=== PATIENT | female | born 1995 | race Caucasian/White ===

== ENCOUNTER 2016-09-08 17:49 | Emergency (ER) | payer OTHER ==
--- NOTE | 2016-09-08 18:44 | ED Physician Documentation ---
PD HPI ABD PAIN - Stated complaint Stated Complaint: 17 WKS/ BLEEDING - Chief complaint Chief Complaint: Abd Pain - History obtained from History obtained from: Patient - History of Present Illness Timing - onset: Today (21-year-old G1 at 17 weeks, she thinks her blood type is A+ but isn't quite sure. No complications of this for so far. Had a gush of blood from her vagina earlier which has stopped.) Review of Systems Constitutional: denies: Fever, Chills Eyes: reports: Reviewed and negative Throat: reports: Reviewed and negative Cardiac: reports: Reviewed and negative PD PAST MEDICAL HISTORY - Past Surgical History Past Surgical History: No - Present Medications Home Medications: Ambulatory Orders Medication Instructions Recorded Confirmed Nitrofurantoin Monohyd/M-Cryst 1 tab PO BID 5 Days 09/08/16 [Macrobid 100 mg Capsule] - Social History Does the pt smoke?: No Smoking Status: Never smoker Does the pt drink ETOH?: No Does the pt have substance abuse?: No - Immunizations Immunizations are current?: Yes PD ED PE NORMAL - Vitals Vital signs reviewed: Yes - General General: Alert and oriented X 3, No acute distress - HEENT HEENT: PERRL, EOMI - Neck Neck: Supple, no meningeal sign, No bony TTP - Abdomen Abdomen: Normal bowel sounds, Soft, Non tender - Female Female : Other (Bedside sono: single live IUP, HR 155, +FM, no FF) - Neuro Neuro: Alert and oriented X 3, Normal speech - Psych Psych: Normal mood, Normal affect Results - Vitals Vitals: Vital Signs - 24 hr 09/08/16 09/08/16 09/08/16 17:56 19:04 19:59 Temperature 37 C 36.6 C 36.7 C Heart Rate 73 67 70 Respiratory 18 15 16 Rate Blood Pressure 137/77 H 127/77 119/70 O2 Saturation 98 99 100 09/08/16 20:10 Temperature 36.4 C L Heart Rate 66 Respiratory 15 Rate Blood Pressure 118/68 O2 Saturation 100 Oxygen O2 Source Room air - Labs Labs: Laboratory Tests 09/08/16 09/08/16 09/08/16 17:58 18:54 18:54 WBC 7.5 RBC 3.82 L Hgb 9.0 L Hct 27.5 L MCV 72.0 L MCH 23.5 L MCHC 32.6 RDW 18.2 H Plt Count 250 MPV 8.2 Neut # 5.2 Lymph # 1.9 [place] # 0.3 Eos # 0.1 Baso # 0.0 Absolute Nucleated RBC 0.00 Nucleated RBCs 0.0 Sodium 136 Potassium 3.4 L Chloride 103 Carbon Dioxide 25 Anion Gap 8.0 BUN 8 Creatinine 0.4 Estimated GFR (MDRD) 203 Glucose 87 Calcium 8.9 Total Bilirubin 0.4 AST 24 ALT 19 Alkaline Phosphatase 50 Total Protein 7.8 Albumin 3.7 Globulin 4.1 Albumin/Globulin Ratio 0.9 L Lipase 35 Urine Color YELLOW Urine Clarity HAZY Urine pH 6.0 Ur Specific [place] <=1.005 Urine Protein NEGATIVE Urine Glucose (UA) NEGATIVE Urine Ketones NEGATIVE Urine Occult Blood NEGATIVE Urine Nitrite NEGATIVE Urine Bilirubin NEGATIVE Urine Urobilinogen 0.2 (NORMAL) Ur Leukocyte Esterase MODERATE H Urine RBC 0-5 Urine WBC 11-25 H Ur Squamous Epith Cells MANY Squamous H Urine Bacteria Few Ur Microscopic Review INDICATED Urine Culture Comments NOT INDICATED Blood Type 09/08/16 18:54 WBC RBC Hgb Hct MCV MCH MCHC RDW Plt Count MPV Neut # Lymph # [place] # Eos # Baso # Absolute Nucleated RBC Nucleated RBCs Sodium Potassium Chloride Carbon Dioxide Anion Gap BUN Creatinine Estimated GFR (MDRD) Glucose Calcium Total Bilirubin AST ALT Alkaline Phosphatase Total Protein Albumin Globulin Albumin/Globulin Ratio Lipase Urine Color Urine Clarity Urine pH Ur Specific [place] Urine Protein Urine Glucose (UA) Urine Ketones Urine Occult Blood Urine Nitrite Urine Bilirubin Urine Urobilinogen Ur Leukocyte Esterase Urine RBC Urine WBC Ur Squamous Epith Cells Urine Bacteria Ur Microscopic Review Urine Culture Comments Blood Type A POSITIVE PD MEDICAL DECISION MAKING - ED course ED course: 21-year-old at 17 weeks with resolved vaginal bleeding, may be related to bladder infection which is treated with Macrobid. heart tones and motion on bedside ultrasound are reassuring. Discussed anemia with patient, she is already having this worked up as an outpatient and was aware of this. Blood type is A+. Departure - Departure Disposition: 01 Home, Self Care Clinical Impression: Vaginal bleeding before 22 weeks gestation, Cystitis Qualifiers: Weeks of gestation: 17 weeks Qualified Code(s): Z3A.17 - 17 weeks gestation of Anemia Qualifiers: Anemia type: unspecified type Qualified Code(s): D64.9 - Anemia, unspecified Condition: Good Record reviewed to determine appropriate education?: Yes Instructions: ED UTI Cystitis Female Prescriptions: Nitrofurantoin Monohyd/M-Cryst [Macrobid 100 mg Capsule] 1 tab PO BID 5 Days Comments: Your blood type is A+, followup with your doctor for routine care and continued workup of your anemia. Return if worse.
[2016-09-08 19:08] LABS: BILIRUBIN,URINE NEGATIVE (NEGATIVE)
[2016-09-08 19:09] LABS: UA w/ MICROSCOPIC CHARGE YES
[2016-09-08 19:12] LABS: BASOPHILS % (AUTO) 0.6 %; EOSINOPHILS # (AUTO) 0.1 10^3/uL (0.0-0.7); EOSINOPHILS % (AUTO) 0.8 %; HCT - HEMATOCRIT 27.5 % (37.0-47.0); LYMPHOCYTES # (AUTO) 1.9 10^3/uL (1.5-3.5); LYMPHOCYTES % (AUTO) 25.7 %; MEAN CORPUSCULAR HEMOGLOBIN 23.5 pg (27.0-31.0); MEAN CORPUSCULAR HGB CONC 32.6 g/dL (32.0-36.0); MEAN PLATELET VOLUME 8.2 fL (7.9-10.8); MONOCYTES # (AUTO) 0.3 10^3/uL (0.0-1.0); MONOCYTES % (AUTO) 4.3 %; NEUTROPHILS # (AUTO) 5.2 10^3/uL (1.5-6.6); NEUTROPHILS % (AUTO) 68.6 %; RED BLOOD COUNT 3.82 10^6/uL (4.20-5.40); RED CELL DISTRIBUTION WIDTH 18.2 % (12.0-15.0); UNCORRECTED WHITE BLOOD COUNT 7.5 x10^3/uL; WHITE BLOOD COUNT 7.5 x10^3/uL (4.8-10.8)
[2016-09-08 19:21] LABS: ALBUMIN/GLOBULIN RATIO 0.9 (1.0-2.2); BILIRUBIN,TOTAL 0.4 mg/dL (0.2-1.0); CALCIUM 8.9 mg/dL (8.5-10.3); CREATININE 0.4 mg/dL (0.4-1.0); POTASSIUM 3.4 mmol/L (3.5-5.0); TOTAL PROTEIN 7.8 g/dL (6.7-8.2)
[2016-09-08 19:40] LABS: UR CULTURE IF IND NOT INDICATED
[2016-09-08 20:10] VITALS: BP 118/68
[2016-09-08] MEDS ORDERED: NITROFURANTOIN MACRO 100 MG CAPSULE PO ONE (20:18)
[2016-09-08] MEDS: NITROFURANTOIN MACRO 100 MG CAPSULE PO STA (20:22)
== END 2016-09-08 20:27 | disposition home or self-care (01) ==
LOC: ED 17:49
DX: O20.9 Hemorrhage in early pregnancy, unspecified (principal); O23.12 Infections of bladder in pregnancy, second trimester; N30.91 Cystitis, unspecified with hematuria; O99.012 Anemia complicating pregnancy, second trimester; Z3A.17 17 weeks gestation of pregnancy
CPT/HCPCS: 36415; 80053; 81001; 81003; 83690; 85025; 86900; 86901; 87086; 99283

== ENCOUNTER 2016-09-09 20:45 | Outpatient (CLI) | payer OTHER ==
--- NOTE | 2016-09-09 22:36 | Ultrasound Preliminary Report ---
Exam: US OB 14+ Weeks IMPRESSION: 1. Single live intrauterine with a gestational age of 17 weeks 5 days base and LMP N/A comp osite gestational age of 17 weeks 2 days based on the current exam. 2. Anterior placenta without evidence for previa or abruption. 3. Normal amniotic fluid. 4. The cervix is long and closed. RADIA The call report notification system was initiated by Dr. Rosalba Stanley at 22:31 hrs on 09/09/16. The above findings were discussed with Dr. Nati Leon by Dr. Rosalba Stanley at 22:35 hrs on 7. SITE ID: [id number]
--- NOTE | 2016-09-09 22:39 | Ultrasound Report ---
EXAM: OBSTETRIC ULTRASOUND EXAM DATE: 09/09/2016 09:05 PM. CLINICAL HISTORY: Antepartum hemorrhage. LMP 05/18/2016 COMPARISON: None. TECHNIQUE: Real-time scanning performed with static images. Both color-flow and Doppler technology were utilized . FINDINGS: Fetus: Single live intrauterine gestation. Presentation: Cephalic. Heart Rate: 140 BPM. Placenta: Anterior position. No evidence for previa or abruption. Amniotic Fluid: Normal. BRISA 15.5 cm. Biometry: Bi-parietal diameter (BPD): 3.9 cm = 18 weeks 0 days. Head circumference (HC): 13.8 cm = 17 weeks 1 days. Abdominal circumference (AC): 10.4 cm = 16 weeks 3 days. Femur length (FL): 2.4 cm = 17 weeks 2 days. Dates: Composite gestational age (this exam): 17 weeks 2 days (TUNG 02/15/2017). Gestational age (based on LMP 05/08/2016): 17 weeks 5 days (TUNG 02/12/2017). Estimated weight: 173 gm. Maternal Structures: Cervix: Long and closed measuring 4.9 cm. Free fluid: None. IMPRESSION: 1. Single live intrauterine with a gestational age of 17 weeks 5 days base and LMP N/A comp osite gestational age of 17 weeks 2 days based on the current exam. 2. Anterior placenta without evidence for previa or abruption. 3. Normal amniotic fluid. 4. The cervix is long and closed. RADIA The call report notification system was initiated by Dr. Rosalba Stanley at 22:31 hrs on 09/09/16. The above findings were discussed with Dr. Nati Leon by Dr. Rosalba Stanley at 22:35 hrs on 7. Referring Provider Line: [phone] SITE ID: [id number]
== END 2016-09-09 20:46 | disposition home or self-care (01) ==
LOC: DI 20:45
PROVIDERS: ATTEND Obstetrics & Gynecology
DX: O46.92 Antepartum hemorrhage, unspecified, second trimester (principal)
CPT/HCPCS: 76805

== ENCOUNTER 2016-11-29 20:30 | Emergency (ER) | payer OTHER ==
--- NOTE | 2016-11-29 21:27 | ED Physician Documentation ---
History of Present Illness - Stated complaint Stated Complaint: FEMALE - Chief complaint Chief Complaint: General - History obtained from History obtained from: Patient - History of Present Illness Timing: Other (She is 29 weeks , she noticed a painful lump under the superior part of the left areole a few days ago which was slightly larger and more painful today without breast discharge or skin changes.) Review of Systems Constitutional: denies: Fever, Chills Cardiac: denies: Chest pain / pressure, Palpitations Respiratory: denies: Dyspnea, Cough GI: denies: Abdominal Pain PD PAST MEDICAL HISTORY - Past Medical History Past Medical History: No - Past Surgical History Past Surgical History: No General: Appendectomy HEENT: Tonsil/Adenoidectomy - Present Medications Home Medications: Ambulatory Orders Medication Instructions Recorded Confirmed Fluconazole 100 mg PO DAILY 11/29/16 11/29/16 Magnesium Oxide [Mag Ox] 400 mg PO DAILY 11/29/16 11/29/16 Pyridoxine HCl 50 mg PO DAILY 11/29/16 11/29/16 - Allergies Allergies/Adverse Reactions: Allergies Allergy/AdvReac Type Severity Reaction Status Date / Time No Known Drug Allergies Allergy Verified 11/29/16 20:37 - Social History Does the pt smoke?: No Smoking Status: Never smoker Does the pt drink ETOH?: No Does the pt have substance abuse?: No - Immunizations Immunizations are current?: Yes PD ED PE NORMAL - Vitals Vital signs reviewed: Yes - General General: Alert and oriented X 3, No acute distress - Neck Neck: Supple, no meningeal sign, No bony TTP - Derm Derm: Other (Breast exam done with Renetta SYKES present in chaperoning. There is a acutely tender subcutaneous lump under the superior part of the left areola that is firm and consistent with fibrocystic breast disease. No cellulitis.) - Neuro Neuro: Alert and oriented X 3, Normal speech Results - Vitals Vitals: Vital Signs - 24 hr 11/29/16 20:32 Temperature 36.7 C Heart Rate 83 Respiratory 20 Rate Blood Pressure 119/61 O2 Saturation 99 Oxygen O2 Source Room air Departure - Departure Disposition: 01 Home, Self Care Clinical Impression: Fibrocystic breast changes Qualifiers: Laterality: left Qualified Code(s): N60.12 - Diffuse cystic mastopathy of left breast Condition: Good Record reviewed to determine appropriate education?: Yes Comments: Have a repeat exam with your phlebotomy lab assistant at your next scheduled appointment and she can follow this along and decide if imaging is necessary, but she may decide on watchful waiting until after the baby is born. Tylenol as needed per package instructions for pain
[2016-11-29 21:41] VITALS: BP 109/64
== END 2016-11-29 21:44 | disposition home or self-care (01) ==
LOC: ED 20:30
DX: O26.893 Other specified pregnancy related conditions, third trimester (principal); N60.12 Diffuse cystic mastopathy of left breast; Z3A.29 29 weeks gestation of pregnancy
CPT/HCPCS: 99282; 99283

== ENCOUNTER 2017-01-13 08:00 | Outpatient (CLI) | payer OTHER | END 2017-01-13 08:01 | disposition home or self-care (01) | LOC: LAB.R 08:00 | PROVIDERS: ATTEND Obstetrics & Gynecology | DX: Z36 Encounter for antenatal screening of mother (principal) | CPT/HCPCS: 87081 ==

== ENCOUNTER 2017-01-13 14:22 | Outpatient (CLI) | payer OTHER ==
[2017-01-13 16:31] LABS: BASOPHILS % (AUTO) 0.4 %; EOSINOPHILS % (AUTO) 0.4 %; HCT - HEMATOCRIT 24.2 % (37.0-47.0); HGB - HEMOGLOBIN 7.5 g/dL (12.0-16.0); LYMPHOCYTES # (AUTO) 1.3 10^3/uL (1.5-3.5); LYMPHOCYTES % (AUTO) 17.6 %; MEAN CORPUSCULAR HEMOGLOBIN 20.4 pg (27.0-31.0); MEAN CORPUSCULAR HGB CONC 31.1 g/dL (32.0-36.0); MEAN CORPUSCULAR VOLUME 65.6 fL (81.0-99.0); MEAN PLATELET VOLUME 8.3 fL (7.9-10.8); MONOCYTES # (AUTO) 0.3 10^3/uL (0.0-1.0); MONOCYTES % (AUTO) 3.9 %; NEUTROPHILS # (AUTO) 5.9 10^3/uL (1.5-6.6); NEUTROPHILS % (AUTO) 77.7 %; NUCLEATED RED BLOOD CELLS AUTO 0.1 /100WBC; RED BLOOD COUNT 3.69 10^6/uL (4.20-5.40); RED CELL DISTRIBUTION WIDTH 17.6 % (12.0-15.0); UNCORRECTED WHITE BLOOD COUNT 7.6 x10^3/uL; WHITE BLOOD COUNT 7.6 x10^3/uL (4.8-10.8)
[2017-01-13 16:43] LABS: PLATELET ESTIMATE, MANUAL NORMAL (130-450,000) (NORMAL); PLATELET MORPHOLOGY 1+ LARGE PLATELETS (NORMAL)
[2017-01-18 08:02] LABS: TEST RESULT REPORT (())
== END 2017-01-13 14:23 | disposition home or self-care (01) ==
LOC: LAB 14:22
PROVIDERS: ATTEND Obstetrics & Gynecology
DX: O99.013 Anemia complicating pregnancy, third trimester (principal); Z36 Encounter for antenatal screening of mother
CPT/HCPCS: 36415; 81599; 83021; 85025; 87081

== ENCOUNTER 2017-01-18 21:15 | Outpatient (CLI) | payer OTHER ==
[2017-01-18 19:27] LABS: IRON 13 ug/dL (28-170); TOTAL IRON BINDING CAPACITY 728 ug/dL (250-450); TRANSFERRIN 520 mg/dL (192-382)
== END 2017-01-18 21:16 | disposition home or self-care (01) ==
LOC: LAB.N 21:15
PROVIDERS: ATTEND Obstetrics & Gynecology
DX: O99.013 Anemia complicating pregnancy, third trimester (principal)
CPT/HCPCS: 36415; 82728; 83540; 84466

== ENCOUNTER 2017-01-23 10:02 | Outpatient (CLI) | payer OTHER ==
[2017-01-23] MEDS ORDERED: TERBUTALINE 1 MG/ML VIAL SUBQ ONE ×2 (12:33→13:00)
[2017-01-23 12:52] LABS: BASOPHILS # (AUTO) 0.1 10^3/uL (0.0-0.1); BASOPHILS % (AUTO) 0.7 %; EOSINOPHILS % (AUTO) 0.2 %; HCT - HEMATOCRIT 23.5 % (37.0-47.0); HGB - HEMOGLOBIN 7.5 g/dL (12.0-16.0); LYMPHOCYTES # (AUTO) 1.5 10^3/uL (1.5-3.5); LYMPHOCYTES % (AUTO) 18.5 %; MEAN CORPUSCULAR HEMOGLOBIN 20.2 pg (27.0-31.0); MEAN CORPUSCULAR HGB CONC 31.7 g/dL (32.0-36.0); MEAN CORPUSCULAR VOLUME 63.5 fL (81.0-99.0); MEAN PLATELET VOLUME 7.6 fL (7.9-10.8); MONOCYTES # (AUTO) 0.4 10^3/uL (0.0-1.0); MONOCYTES % (AUTO) 4.4 %; NEUTROPHILS # (AUTO) 6.3 10^3/uL (1.5-6.6); NEUTROPHILS % (AUTO) 76.2 %; NUCLEATED RED BLOOD CELLS AUTO 0.1 /100WBC; RED BLOOD COUNT 3.71 10^6/uL (4.20-5.40); RED CELL DISTRIBUTION WIDTH 17.8 % (12.0-15.0); UNCORRECTED WHITE BLOOD COUNT 8.3 x10^3/uL; WHITE BLOOD COUNT 8.3 x10^3/uL (4.8-10.8)
[2017-01-23] MEDS ORDERED: SODIUM CHLORIDE FLUSH 0.9% 10 ML SYRINGE IVP ONE (13:13)
[2017-01-23 13:14] LABS: PLATELET MORPHOLOGY NORMAL APPEARANCE (NORMAL)
[2017-01-23 13:15] LABS: PLATELET ESTIMATE, MANUAL NORMAL (130-450,000) (NORMAL)
[2017-01-23 13:16] LABS: WBC MORPHOLOGY (MULTIPLE) NORMAL APPEARANCE (NORMAL)
[2017-01-23 13:52] VITALS: BP 121/75
[2017-01-23] MEDS ORDERED: FERRIC GLUCONATE 125 MG in SODIUM CHLORIDE 0.9% 100ML 100 ML IV ONE (14:30)
[2017-01-23] MEDS ORDERED: LACTATED RINGERS 1,000 ML IV ONE ×2 (15:03→16:00)
== END 2017-01-23 17:34 | disposition home or self-care (01) ==
LOC: WFO 10:02 → FBP 10:03 → WFO 17:34
PROVIDERS: ATTEND Obstetrics & Gynecology
DX: O99.89 Other specified diseases and conditions complicating pregnancy, childbirth and the puerperium (principal); R10.2 Pelvic and perineal pain; Z3A.36 36 weeks gestation of pregnancy
CPT/HCPCS: 36415; 85025; 96365; 96372; 99214; J2916; J7120

== ENCOUNTER 2017-02-06 00:33 | Outpatient (CLI) | payer OTHER ==
[2017-02-06 00:51] VITALS: BP 123/64
== END 2017-02-06 01:40 | disposition home or self-care (01) ==
LOC: WFO 00:33 → FBP 00:34 → WFO 01:40
PROVIDERS: ATTEND Obstetrics & Gynecology
DX: O99.89 Other specified diseases and conditions complicating pregnancy, childbirth and the puerperium (principal); Z3A.38 38 weeks gestation of pregnancy; O99.013 Anemia complicating pregnancy, third trimester
CPT/HCPCS: 99213

== ENCOUNTER 2017-02-15 02:58 | Inpatient (IN) | payer OTHER ==
[2017-02-15] MEDS ORDERED: SODIUM CHLORIDE FLUSH 0.9% 10 ML SYRINGE IVP ONE ×3 (04:04→06:30)
[2017-02-15] MEDS ORDERED: fentaNYL 100 MCG/2 ML VIAL ONE (04:24)
[2017-02-15] MEDS ORDERED: ONDANSETRON 4 MG/2 ML VIAL ONE (04:51)
[2017-02-15] MEDS ORDERED: ONDANSETRON 4 MG/2 ML VIAL IVP SCH (05:00)
[2017-02-15] MEDS ORDERED: fentaNYL 100 MCG/2 ML VIAL IVP SCH (05:00)
[2017-02-15] MEDS ORDERED: fentaNYL 100 MCG/2 ML VIAL IVP STA (06:17)
[2017-02-15 06:55] LABS: BASOPHILS # (AUTO) 0.1 10^3/uL (0.0-0.1); EOSINOPHILS # (AUTO) 0.1 10^3/uL (0.0-0.7); EOSINOPHILS % (AUTO) 0.8 %; HCT - HEMATOCRIT 27.8 % (37.0-47.0); HGB - HEMOGLOBIN 8.6 g/dL (12.0-16.0); LYMPHOCYTES # (AUTO) 1.7 10^3/uL (1.5-3.5); LYMPHOCYTES % (AUTO) 26.8 %; MEAN CORPUSCULAR HEMOGLOBIN 21.2 pg (27.0-31.0); MEAN CORPUSCULAR HGB CONC 30.9 g/dL (32.0-36.0); MEAN CORPUSCULAR VOLUME 68.6 fL (81.0-99.0); MEAN PLATELET VOLUME 8.2 fL (7.9-10.8); MONOCYTES # (AUTO) 0.4 10^3/uL (0.0-1.0); NEUTROPHILS # (AUTO) 4.2 10^3/uL (1.5-6.6); NEUTROPHILS % (AUTO) 65.4 %; RED BLOOD COUNT 4.06 10^6/uL (4.20-5.40); RED CELL DISTRIBUTION WIDTH 22.8 % (12.0-15.0); UNCORRECTED WHITE BLOOD COUNT 6.5 x10^3/uL; WHITE BLOOD COUNT 6.5 x10^3/uL (4.8-10.8)
[2017-02-15] MEDS ORDERED: SODIUM CHLORIDE FLUSH 0.9% 10 ML SYRINGE IVP PRN (07:20)
[2017-02-15] MEDS ORDERED: OXYTOCIN/SODIUM CHLORIDE 250 ML IV ONE ×2 (07:20→19:32)
[2017-02-15] MEDS ORDERED: fentaNYL 100 MCG/2 ML VIAL IVP PRN (07:20)
[2017-02-15 07:45] LABS: PLATELET ESTIMATE, MANUAL NORMAL (130-450,000) (NORMAL); PLATELET MORPHOLOGY 1+ LARGE PLATELETS (NORMAL)
[2017-02-15 07:47] LABS: WBC MORPHOLOGY (MULTIPLE) NORMAL APPEARANCE (NORMAL)
[2017-02-15] MEDS: LACTATED RINGERS 1,000 ML IV SCH ×2 (08:20→15:27)
[2017-02-15] MEDS ORDERED: miSOPROStol 200 MCG TABLET PO ONE (10:59)
[2017-02-15] MEDS: ONDANSETRON 4 MG/2 ML VIAL IVP PRN ×2 (11:37→18:31)
[2017-02-15] MEDS: OXYTOCIN/SODIUM CHLORIDE 250 ML IV SCH ×2 (12:41→19:24)
[2017-02-15] MEDS: ACETAMINOPHEN 325 MG TABLET PO SCH ×3 (12:41→23:54)
--- NOTE | 2017-02-15 13:02 | PROVIDER PROGRESS NOTE ---
Labor Progress Note - Uterine Monitoring Uterine Monitoring Mode: positive: External toco Contraction Frequency (min/apart): Every 3 minutes Contraction Intensity: positive: Moderate Uterine Resting Tone: positive: Soft (Nontender) - Monitoring Monitor Mode: positive: External ultrasound Heart Rate Baseline: 130 Heart Rate Variability: positive: Moderate (6-25 bmp) Accelerations: positive: Present, 15x15 Decelerations: positive: None Strip Review: positive: Category I - Vaginal Exam Dilation (in cm): 5 Effacement (%): 100% Station: 0 Cervical Position: Midposition - Labor Progress Note Labor Progress Note/Additional Text: Patient is entering the active phase. heart tones remain reassuringAnd patient has good energy reserve. She does not want an epidural at this time and we offered fentanyl 75 mcg for a one-time dose. She understands that once the dilation is beyond 7 cm will not be able to offer narcotic pain relief. Patient's close friend should return soon and her mother is expected to flying in at 9 PM tonight.
[2017-02-15] MEDS ORDERED: fentaNYL 100 MCG/2 ML VIAL IVP ONE (13:30)
--- NOTE | 2017-02-15 13:30 | HISTORY & PHYSICAL EXAMINATION ---
DATE OF ADMISSION: 02/15/2017 DIAGNOSES 1. Term , in labor. 2. Iron deficiency anemia complicating . HISTORY: The patient is a 21-year-old primigravida at 40 weeks' gestation based on LMP and early ultrasound. 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 She had recently been evaluated by myself on the in the prodrome of labor and was sent home with morphine and therapeutic rest. At that time her dilation was only 1 cm and she was not engaged. She has significant anemia and recent hemoglobin was 7.0. She has had 2 iron transfusion therapies. Her electrophoresis is negative for hemoglobinopathy. Additionally, she had a recent bout of bacterial vaginosis that was treated. LABORATORY: GBS status negative. PAST MEDICAL HISTORY: The patient has had anemia in the past. PAST SURGICAL HISTORY: Appendectomy in 2003, tonsillectomy and adenoidectomy in 2001. ALLERGIES: NO KNOWN DRUG ALLERGIES. MEDICATIONS 1. vitamins with iron. 2. Supplemental iron. 3. IV iron therapy. FAMILY HISTORY: No congenital anomalies, aneuploid, or inheritable diseases. Breast cancer, maternal grandmother. Diabetes, maternal grandmother. SOCIAL HISTORY: Active duty [employer]. No drug, tobacco or alcohol use reported. REVIEW OF SYSTEMS CONSTITUTIONAL: Negative. HEENT: Negative. LUNGS: Negative. CARDIAC: Negative. BREASTS: Negative. ABDOMINAL/GASTROINTESTINAL: Negative. GENITOURINARY: Negative. MUSCULOSKELETAL: Negative. SKIN: Negative. NEUROLOGIC: Negative. PSYCH: Negative. PHYSICAL EXAMINATION GENERAL: The patient standing comfortably by bed, IV in place. Alert, oriented, cooperative. HEENT: Dentition in good repair. Moist mucous membranes. Supple neck. No thyromegaly. EOMI. No icterus noted in sclerae. LUNGS: Clear to auscultation. CARDIAC: Regular, no murmur, no gallop. BREASTS: Full, nontender. No mass. ABDOMEN: No organomegaly. Soft, nontender. UTERUS: Appropriate size, mild to moderate contractions every 4 minutes. GENITOURINARY: No blood or fluid. Cervix posterior, soft, 80-90% effaced, 3 cm. External heart tracing 130s, category 1. No decels, variability moderate. Contractions every 4 minutes. EXTREMITIES: Nonedematous. NEUROLOGIC: Grossly intact. Patellar reflexes 2+ and equal. Located chain here trying to. LABORATORY DATA: Hemoglobin 8.6, microcytic hypochromic anemia. White count 6.5 , platelets 243, morphology changes noted from anemia. Blood type A positive, antibody screen negative. ASSESSMENT: The patient has made cervical change since our last exam on the and now has regular contractions. heart tracing is category 1 and there are no concerns about reserve at the current time. Discussed epidural and the patient would like to avoid interventions. Additionally, given the strength of palpated labor contractions, Pitocin augmentation may be required, which she consents to. PLAN 1. Admit. 2. Pitocin augmentation. 3. Expected management, effects of maternal anemia anticipated. JOB #: [id number] EXT JOB #:[id number] MICHELET
[2017-02-15] MEDS ORDERED: fent/BUPIV 2 MCG/0.125% 250 ML EP ONE ×2 (15:25→15:29)
--- NOTE | 2017-02-15 15:56 | PROVIDER PROGRESS NOTE ---
Subjective - Prog Note Date Prog Note Date: 02/15/17 - Subjective Pt reports feeling: Worse (Patient now reports chest pain) Subjective: Edgar is in the active phase of labor and reports chest tightness or pressure in the mid sternum. She reports no rate disturbance or palpitations.She is known to be severely anemic with a hemoglobin of 8.2.She reports no headache, visual disturbance or abdominal pain other than uterine contractions. Labor pain is intense and until now she is resisted epidural anesthetic. She has no history of cardio vascular disease or PIH. Objective - Vital Signs/Intake & Output Intake & Output: Intake & Output 02/12/17 02/13/17 02/14/17 02/15/17 23:59 23:59 23:59 23:59 Intake Total 1000 Balance 1000 - Lab Results Fish Bones: 02/15/17 04:15 Other Labs: Lab Results x24hrs 02/15/17 02/15/17 02/15/17 Range/Units 04:15 04:15 04:15 WBC 6.5 (4.8-10.8) x10^3/uL RBC 4.06 L (4.20-5.40) 10^6/uL Hgb 8.6 L (12.0-16.0) g/dL Hct 27.8 L (37.0-47.0) % MCV 68.6 L (81.0-99.0) fL MCH 21.2 L (27.0-31.0) pg MCHC 30.9 L (32.0-36.0) g/dL RDW 22.8 H (12.0-15.0) % Plt Count 243 (130-450) 10^3/uL MPV 8.2 (7.9-10.8) fL Neut # 4.2 (1.5-6.6) 10^3/uL Lymph # 1.7 (1.5-3.5) 10^3/uL [place] # 0.4 (0.0-1.0) 10^3/uL Eos # 0.1 (0.0-0.7) 10^3/uL Baso # 0.1 (0.0-0.1) 10^3/uL Absolute Nucleated RBC 0.00 x10^3/uL Nucleated RBC % 0.0 /100WBC Manual Slide Review Indicated WBC Morphology NORMAL APPEARANCE (NORMAL) Platelet Estimate NORMAL (130-450,000) (NORMAL) Platelet Morphology 1+ LARGE PLATELETS (NORMAL) RBC Morph Micro Appear 2+ MICROCYTOSIS (NORMAL) Blood Type Cancelled A POSITIVE Antibody Screen Cancelled NEGATIVE Crossmatch IS Only See Detail Exam - Exam Vital Signs: Vital Signs (72 hours) 02/15/17 02/15/17 02/15/17 03:16 03:37 05:52 Temperature 98.4 F 98.4 F Heart Rate [ 64 60 Radial] Respiratory 24 20 Rate Blood Pressure 142/92 H 144/70 H 115/63 [Right Brachial artery] O2 Saturation 99 98 General: Alert, Oriented x3, Moderate distress (With labor pain) HEENT: EOMI, Mucous membr. moist/pink, Other (Supple neck) Lungs: Clear to auscultation Cardiovascular: Regular rate, Normal S1, Normal S2, Other (Systolic Flow murmur grade 2/6 without diastolic component: EKG obtained that has a regular rate of 57 in sinus rhythm.There are some T-wave changes suggestive of anterior Ischemia. Immediate review with hospitalist service findings no major concerns..) Abdomen: Other (Uterine contractions moderate every 2-1/2 minutes, normal resting tone) Extremities: No edema Skin: No rashes (Extremities warm hands and feet) Neurological: Normal speech, Sensation intact Psych/Mental Status: Other (Patient anxious due to pain) Assess/Plan - Patient Problems Active Problems List: Current Active Problems 40 weeks gestation of (Acute) Iron deficiency anemia during (Acute) Active Problems Comments: Patient currently reports chest pain.By clinical exam there is no signs of failure. EKG Does not seem consistent with acute infarct. Relative myocardial ischemia is possible due to her severe anemia, the hyperdynamic state of , and the additional vascular changes associated with pain & anxiety. Patient was resistant to epidural for the last several hours but now consents. Epidural should lessen her pain and cardiovascular load. 2 units of packed red blood cells are in reserve. I do not believe it is necessary to transfuse immediately. If patient has marked blood loss transfusion may become necessary. Labor is progressing normally and last exam was close to 9 cm but she has no urge to push. We will place epidural and let her situation stabilized. ADDENDUM: Immediately after epidural, Her pain is decreased and so has her cardiac symptoms - Additional Planning Condition/Complexity: Stable My Orders: My Active Orders 02/15/17 Hospitalist Consult [CONS] Routine 02/15/17 04:09 IV Saline Lock [Saline Lock IV] [RC] ONCE 02/15/17 04:15 RBC, LEUKOREDUCED Urgent 02/15/17 09:00 Oxytocin/Sodium Chloride [Pitocin/Sodium Chloride] 250 ml IV TITR 02/15/17 11:26 Ondansetron Inj [Zofran Inj] 4 mg IVP Q2H PRN Consult/Specialty: Other (Hospitalist service) Plan Discussed with:: Patient Time Spent: 31-60 minutes
[2017-02-15] MEDS ORDERED: diphenhydrAMINE INJ 50 MG/ML VIAL IVP PRN (15:57)
[2017-02-15] MEDS ORDERED: fent/BUPIV 2 MCG/0.125% 250 ML EP PRN (15:57)
[2017-02-15] MEDS ORDERED: NALOXONE 0.4 MG/ML VIAL IVP PRN (15:57)
[2017-02-15] MEDS ORDERED: ONDANSETRON 4 MG/2 ML VIAL IVP PRN (15:57)
[2017-02-15] MEDS ORDERED: METOCLOPRAMIDE 10 MG/2 ML VIAL IVP PRN (15:57)
[2017-02-15] MEDS ORDERED: LACTATED RINGERS 500 ML IV ONE (15:57)
[2017-02-15] MEDS ORDERED: ePHEDrine 50 MG/ML VIAL IVP PRN (15:57)
[2017-02-15] MEDS ORDERED: NALBUPHINE 20 MG/ML AMP IVP PRN (15:57)
[2017-02-15 16:58] LABS: ALBUMIN/GLOBULIN RATIO 0.8 (1.0-2.2); BILIRUBIN,TOTAL 0.7 mg/dL (0.2-1.0); CALCIUM 8.6 mg/dL (8.5-10.3); CREATININE 0.5 mg/dL (0.4-1.0); POTASSIUM 3.6 mmol/L (3.5-5.0); TOTAL PROTEIN 6.4 g/dL (6.7-8.2)
--- NOTE | 2017-02-15 16:58 | PROVIDER PROGRESS NOTE ---
Labor Progress Note - Uterine Monitoring Uterine Monitoring Mode: positive: External toco Contraction Frequency (min/apart): Every 3.5 minutes Contraction Intensity: positive: Moderate Uterine Resting Tone: positive: Soft - Monitoring Monitor Mode: positive: External ultrasound Heart Rate Variability: positive: Moderate (6-25 bmp) Accelerations: positive: Present, 15x15 Decelerations: positive: Variable Strip Review: positive: Category II - Vaginal Exam Dilation (in cm): 10 Effacement (%): 100% Station: 2 Cervical Position: Anterior - Labor Progress Note Labor Progress Note/Additional Text: After epidural patient is progressing well. Additionally her chest pain and shortness of breath have disappeared with adequate pain or relief. I believe her symptoms were not due to a cardiac event but rather secondary to anxiety compounded by relative anemia. Cardiac labs and Hospitalist consult pending.
[2017-02-15 17:02] LABS: TROPONIN I < 0.04 ng/mL (<0.49)
[2017-02-15 17:04] LABS: CREATINE KINASE MB 0.9 ng/mL (0.6-6.3)
[2017-02-15 17:19] LABS: PLATELET ESTIMATE, MANUAL NORMAL (130-450,000) (NORMAL)
[2017-02-15 17:22] LABS: BASOPHILS % (AUTO) 0.5 %; EOSINOPHILS % (AUTO) 0.1 %; HGB - HEMOGLOBIN 8.4 g/dL (12.0-16.0); LYMPHOCYTES # (AUTO) 0.9 10^3/uL (1.5-3.5); LYMPHOCYTES % (AUTO) 9.4 %; MEAN CORPUSCULAR HEMOGLOBIN 21.3 pg (27.0-31.0); MEAN CORPUSCULAR HGB CONC 31.2 g/dL (32.0-36.0); MEAN CORPUSCULAR VOLUME 68.1 fL (81.0-99.0); MEAN PLATELET VOLUME 7.7 fL (7.9-10.8); MONOCYTES # (AUTO) 0.3 10^3/uL (0.0-1.0); MONOCYTES % (AUTO) 3.1 %; NEUTROPHILS # (AUTO) 8.3 10^3/uL (1.5-6.6); NEUTROPHILS % (AUTO) 86.9 %; RED BLOOD COUNT 3.96 10^6/uL (4.20-5.40); RED CELL DISTRIBUTION WIDTH 22.6 % (12.0-15.0); UNCORRECTED WHITE BLOOD COUNT 9.6 x10^3/uL; WHITE BLOOD COUNT 9.6 x10^3/uL (4.8-10.8)
[2017-02-15] MEDS ORDERED: MINERAL OIL LIGHT 10 ML MC ONE (19:01)
[2017-02-15] MEDS ORDERED: HYDROcod/ACETAM 5/325 MG TABLET PO PRN (19:32)
--- NOTE | 2017-02-15 19:47 | DELIVERY NOTE ---
Delivery Note - Labor Labor: positive: Spontaneous - Delivery Method Delivery Method: positive: Vacuum assist - Presentation Presentation: positive: Vertex, LEANDRO - right occiput anterior - Nuchal Cord Nuchal Cord: positive: Present (Nuchal cord was loose and not a factor for the delivery) - Anesthetic Anesthetic Type: Volume: positive: Other (10 cc) - Amniotic Fluid Description Amniotic Fluid Description: positive: Clear - Vacuum Use Indication for Vacuum Use: positive: Suspicion of immediate or potential compromise ( bradycardia to the 80s) Type of Vacuum Cup: positive: Cup: Rigid Vacuum Extraction: positive: Successful Number of pop-offs: 0 - Episiotomy Type Episiotomy Type: positive: None - Laceration Laceration: positive: 2nd degree (Shallow: Midline) - Suture Suture Type: positive: Vicryl Suture Size: positive: 2-0, 3-0 - Delivery Outcome Delivery Outcome: positive: Livebirth - : positive: Placed in direct skin contact with mother, Bulb syringe, Stimulated, Warmed, [place] used [place] sex: positive: Female - Cord Cord: positive: 2 vessels - Placenta Placenta: positive: Spontaneous (Placenta grade 3 without evidence of infection or abruption) - Estimated Blood Loss Estimated Blood Loss (in cc): 250 - Post Delivery Events Post Delivery Events: positive: No post delivery events - Delivery Comments (Free Text/Narrative) Delivery Comments (Free Text/Narrative): Living female was born at 1806 scoring Apgars of 8 and 9.Due to bradycardia Dr. Sherwood was present. Weight pending. To minimize bleeding Cytotec 600 mcg were given per rectum. Sponge count was off by 1. The vagina was searched thoroughly and no foreign objects were Found.
[2017-02-15] MEDS ORDERED: LACTATED RINGERS 1,000 ML IV SCH (20:00)
[2017-02-15] MEDS ORDERED: miSOPROStol 200 MCG TABLET PR SCH (21:00)
[2017-02-15] MEDS: IBUPROFEN 600 MG TABLET PO SCH ×2 (21:58→23:53)
[2017-02-16] MEDS: IBUPROFEN 600 MG TABLET PO SCH ×4 (05:43→23:49)
[2017-02-16] MEDS: ACETAMINOPHEN 325 MG TABLET PO SCH ×4 (05:43→23:49)
[2017-02-16 06:13] LABS: BASOPHILS % (AUTO) 0.4 %; EOSINOPHILS % (AUTO) 0.3 %; HCT - HEMATOCRIT 24.9 % (37.0-47.0); HGB - HEMOGLOBIN 7.8 g/dL (12.0-16.0); LYMPHOCYTES # (AUTO) 1.8 10^3/uL (1.5-3.5); LYMPHOCYTES % (AUTO) 18.7 %; MEAN CORPUSCULAR HEMOGLOBIN 21.4 pg (27.0-31.0); MEAN CORPUSCULAR HGB CONC 31.2 g/dL (32.0-36.0); MEAN CORPUSCULAR VOLUME 68.5 fL (81.0-99.0); MEAN PLATELET VOLUME 7.4 fL (7.9-10.8); MONOCYTES # (AUTO) 0.6 10^3/uL (0.0-1.0); NEUTROPHILS # (AUTO) 7.1 10^3/uL (1.5-6.6); NEUTROPHILS % (AUTO) 74.6 %; RED BLOOD COUNT 3.63 10^6/uL (4.20-5.40); UNCORRECTED WHITE BLOOD COUNT 9.5 x10^3/uL; WHITE BLOOD COUNT 9.5 x10^3/uL (4.8-10.8)
[2017-02-16 06:36] LABS: PLATELET ESTIMATE, MANUAL NORMAL (130-450,000) (NORMAL); PLATELET MORPHOLOGY NORMAL APPEARANCE (NORMAL)
[2017-02-16] MEDS: SODIUM CHLORIDE FLUSH 0.9% 10 ML SYRINGE IVP SCH ×4 (06:53→14:16)
--- NOTE | 2017-02-16 08:49 | PROVIDER PROGRESS NOTE ---
Subjective - General Admit Date: 02/15/17 Procedure Date: 02/15/17 Post Op Days: 1 Procedure Performed: Vacuum(Outlet) assisted vaginal delivery; repair of minor laceration - Review of Systems Wound/Incisions: positive: Healing well Drain Type: None General: positive: No symptoms HEENT: positive: No symptoms Pulmonary: positive: No symptoms Cardiovascular: positive: No symptoms Gastrointestinal: positive: Flatus Genitourinary: positive: Other (Mild non-foul lochia reported) Musculoskeletal: positive: No symptoms Skin: positive: No symptoms Neurological: Psychiatric: positive: No symptoms, Other (Radha's mother arrived from [place] and the entire family is happy) Objective - Patient Data Vital Signs: Vital Signs x48h Temp Pulse Resp BP Pulse Ox 02/16/17 07:54 98.1 F 62 18 109/47 L 99 02/16/17 01:53 98.6 F 69 18 122/62 98 Weight: Weight 02/14/17 02/15/17 02/16/17 23:59 23:59 23:59 Weight (kg) 87.997 kg Intake & Output: Intake and Output Totals x24h 02/14/17 02/15/17 02/16/17 23:59 23:59 23:59 Intake Total 2250.0 Balance 2250.0 - Lab Results Lab Results: 02/16/17 05:52 02/15/17 16:38 Other Lab Results: Lab Results x24hrs 02/16/17 02/15/17 02/15/17 Range/Units 05:52 16:38 16:38 WBC 9.5 (4.8-10.8) x10^3/uL RBC 3.63 L (4.20-5.40) 10^6/uL Hgb 7.8 L (12.0-16.0) g/dL Hct 24.9 L (37.0-47.0) % MCV 68.5 L (81.0-99.0) fL MCH 21.4 L (27.0-31.0) pg MCHC 31.2 L (32.0-36.0) g/dL RDW 22.0 H (12.0-15.0) % Plt Count 198 (130-450) 10^3/uL MPV 7.4 L (7.9-10.8) fL Neut # 7.1 H (1.5-6.6) 10^3/uL Lymph # 1.8 (1.5-3.5) 10^3/uL [place] # 0.6 (0.0-1.0) 10^3/uL Eos # 0.0 (0.0-0.7) 10^3/uL Baso # 0.0 (0.0-0.1) 10^3/uL Absolute Nucleated RBC 0.00 x10^3/uL Nucleated RBC % 0.0 /100WBC Manual Slide Review Indicated Platelet Estimate NORMAL (130-450,000) (NORMAL) Platelet Morphology NORMAL APPEARANCE (NORMAL) RBC Morph Micro Appear 1+ POLYCHROMASIA (NORMAL) Sodium (135-145) mmol/L Potassium (3.5-5.0) mmol/L Chloride (101-111) mmol/L Carbon Dioxide (21-32) mmol/L Anion Gap (6-13) BUN (6-20) mg/dL Creatinine (0.4-1.0) mg/dL Estimated GFR (MDRD) (>89) Glucose (70-100) mg/dL Calcium (8.5-10.3) mg/dL Total Bilirubin (0.2-1.0) mg/dL AST (10-42) IU/L ALT (10-60) IU/L Alkaline Phosphatase (42-121) IU/L Total Creatine Kinase 49 (22-269) IU/L CK-MB (CK-2) 0.9 (0.6-6.3) ng/mL Troponin I < 0.04 (<0.49) ng/mL Total Protein (6.7-8.2) g/dL Albumin (3.2-5.5) g/dL Globulin (2.1-4.2) g/dL Albumin/Globulin Ratio (1.0-2.2) Blood Type Antibody Screen Crossmatch IS Only 02/15/17 02/15/17 02/15/17 Range/Units 16:38 16:38 04:15 WBC 9.6 (4.8-10.8) x10^3/uL RBC 3.96 L (4.20-5.40) 10^6/uL Hgb 8.4 L (12.0-16.0) g/dL Hct 27.0 L (37.0-47.0) % MCV 68.1 L (81.0-99.0) fL MCH 21.3 L (27.0-31.0) pg MCHC 31.2 L (32.0-36.0) g/dL RDW 22.6 H (12.0-15.0) % Plt Count 233 (130-450) 10^3/uL MPV 7.7 L (7.9-10.8) fL Neut # 8.3 H (1.5-6.6) 10^3/uL Lymph # 0.9 L (1.5-3.5) 10^3/uL [place] # 0.3 (0.0-1.0) 10^3/uL Eos # 0.0 (0.0-0.7) 10^3/uL Baso # 0.0 (0.0-0.1) 10^3/uL Absolute Nucleated RBC 0.00 x10^3/uL Nucleated RBC % 0.0 /100WBC Manual Slide Review Platelet Estimate NORMAL (130-450,000) (NORMAL) Platelet Morphology (NORMAL) RBC Morph Micro Appear 1+ HYPOCHROMASIA (NORMAL) Sodium 133 L (135-145) mmol/L Potassium 3.6 (3.5-5.0) mmol/L Chloride 102 (101-111) mmol/L Carbon Dioxide 21 (21-32) mmol/L Anion Gap 10.0 (6-13) BUN 6 (6-20) mg/dL Creatinine 0.5 (0.4-1.0) mg/dL Estimated GFR (MDRD) 157 (>89) Glucose 111 H (70-100) mg/dL Calcium 8.6 (8.5-10.3) mg/dL Total Bilirubin 0.7 (0.2-1.0) mg/dL AST 19 (10-42) IU/L ALT 13 (10-60) IU/L Alkaline Phosphatase 122 H (42-121) IU/L Total Creatine Kinase (22-269) IU/L CK-MB (CK-2) (0.6-6.3) ng/mL Troponin I (<0.49) ng/mL Total Protein 6.4 L (6.7-8.2) g/dL Albumin 2.9 L (3.2-5.5) g/dL Globulin 3.5 (2.1-4.2) g/dL Albumin/Globulin Ratio 0.8 L (1.0-2.2) Blood Type Cancelled Antibody Screen Cancelled Crossmatch IS Only See Detail 02/15/17 Range/Units 04:15 WBC (4.8-10.8) x10^3/uL RBC (4.20-5.40) 10^6/uL Hgb (12.0-16.0) g/dL Hct (37.0-47.0) % MCV (81.0-99.0) fL MCH (27.0-31.0) pg MCHC (32.0-36.0) g/dL RDW (12.0-15.0) % Plt Count (130-450) 10^3/uL MPV (7.9-10.8) fL Neut # (1.5-6.6) 10^3/uL Lymph # (1.5-3.5) 10^3/uL [place] # (0.0-1.0) 10^3/uL Eos # (0.0-0.7) 10^3/uL Baso # (0.0-0.1) 10^3/uL Absolute Nucleated RBC x10^3/uL Nucleated RBC % /100WBC Manual Slide Review Platelet Estimate (NORMAL) Platelet Morphology (NORMAL) RBC Morph Micro Appear (NORMAL) Sodium (135-145) mmol/L Potassium (3.5-5.0) mmol/L Chloride (101-111) mmol/L Carbon Dioxide (21-32) mmol/L Anion Gap (6-13) BUN (6-20) mg/dL Creatinine (0.4-1.0) mg/dL Estimated GFR (MDRD) (>89) Glucose (70-100) mg/dL Calcium (8.5-10.3) mg/dL Total Bilirubin (0.2-1.0) mg/dL AST (10-42) IU/L ALT (10-60) IU/L Alkaline Phosphatase (42-121) IU/L Total Creatine Kinase (22-269) IU/L CK-MB (CK-2) (0.6-6.3) ng/mL Troponin I (<0.49) ng/mL Total Protein (6.7-8.2) g/dL Albumin (3.2-5.5) g/dL Globulin (2.1-4.2) g/dL Albumin/Globulin Ratio (1.0-2.2) Blood Type A POSITIVE Antibody Screen NEGATIVE Crossmatch IS Only - Current Medications Current Medications: Current Medications Generic Name Dose Route Start Last Admin Trade Name Sriniq PRN Reason Stop Dose Admin Acetaminophen 650 mg 02/15/17 08:00 02/16/17 05:43 Tylenol PO 650 mg Q6H AMY Administration Ibuprofen 600 mg 02/15/17 20:00 02/16/17 05:43 Motrin PO 600 mg Q6H AMY Administration Sodium Chloride 10 ml 02/15/17 14:00 02/16/17 07:25 Normal Saline Flush 0.9% IVP Not Given Q8HR AMY Exam - Exam Vital Signs: Vital Signs (72 hours) 02/15/17 02/15/17 02/15/17 03:16 03:37 05:52 Temperature 98.4 F 98.4 F Heart Rate [ 64 60 Radial] Respiratory 24 20 Rate Blood Pressure 142/92 H 144/70 H 115/63 [Right Brachial artery] O2 Saturation 99 98 02/15/17 02/15/17 02/15/17 19:47 19:55 20:25 Temperature 97.8 F Heart Rate [ 83 83 75 Radial] Respiratory 16 18 18 Rate Blood Pressure 116/77 117/52 L 131/72 H [Right Brachial artery] O2 Saturation 02/15/17 02/15/17 02/15/17 20:31 20:32 20:45 Temperature Heart Rate [ 66 76 73 Radial] Respiratory 16 Rate Blood Pressure 144/71 H 128/78 126/77 [Right Brachial artery] O2 Saturation 02/15/17 02/16/17 02/16/17 21:00 01:53 07:54 Temperature 98.6 F 98.1 F Heart Rate [ 72 69 62 Radial] Respiratory 18 18 18 Rate Blood Pressure 141/64 H 122/62 109/47 L [Right Brachial artery] O2 Saturation 98 99 General: Alert, Oriented x3, Cooperative, No acute distress HEENT: EOMI, Mucous membr. moist/pink Abdomen: Normal bowel sounds, No tenderness, Other (Uterus 17 week size nontender and firm) Extremities: No edema Skin: No rashes Neurological: Normal speech, Sensation intact Psych/Mental Status: Mental status NL Assessment/Plan - Assessment/Plan Assessment: Patient recovering well from vaginal delivery with minimal blood loss. Hemoglobin stable and patient is compensated for her anemia. Plan: Patient will remain for at least 1-2 more days for supportive care and new mother education
--- NOTE | 2017-02-16 10:02 | PROCEDURE REPORT ---
DATE OF PROCEDURE: 02/15/2017 DELIVERY NOTE PRE-DELIVERY DIAGNOSES 1. Spontaneous labor at 40 weeks' gestation. 2. Severe anemia, iron deficiency. 3. Intermittent bout of chest pain. 4. bradycardia. POSTOPERATIVE DIAGNOSES 1. Spontaneous labor at 40 weeks' gestation. 2. Severe anemia, iron deficiency. 3. Intermittent bout of chest pain. 4. bradycardia. 5. Successful vacuum delivery. 6. Placenta was grade 3. PROCEDURE: Outlet vacuum without rotation over an intact perineum to yield a living female ; repair of minor midline laceration, second degree. YAM CURER: Pavel Patel MD, FACOG, FICS. ANESTHESIA: Epidural; 10 mL of lidocaine 1% local (Dr. Patel). NEWS WRITER: Madhu Vieira CRNA. NEWSPAPER DISTRIBUTOR SUPERVISOR: Christian Carter MD (Pediatrics). COMPLICATIONS: None. ESTIMATED BLOOD LOSS: 250. DRAINS: None. Patient straight catheterized prior to delivery. FINDINGS: At 1805 hours, a living female was born weighing 6 pounds 11 ounces and scoring Apgars 8/9. There were no obvious congenital anomalies or trauma. Cord blood sample was taken. Reference Dr. Carter's notes. There was a 3-vessel cord draped loosely x1. Cord was not a factor in delivery. Placenta was delivered intact without evidence of infection, abruption, or meconium. Placenta was grade 3. Examination of the female genital tract found a shallow second-degree laceration without extension to the anal sphincter or rectum itself. TECHNIQUE: Patient experienced chest pain during the active phase of labor. The pain resulted from inadequate pain control, She declined epidural in pursuit of unmedicated but did allow IVP Fentanyl. Hemoglobin was checked and found to be stable. EKG showed some nonspecific T-wave changes that were reviewed by hospitalist and felt not to be problematic. After epidural with complete pain relief, chest pain resolved. She was allowed to labor down, and at +3 station, She was prepared for pushing. The patient pushed with good effort, coached by nursing and friend. She brought the head to the perineum. At that point, there was a prolonged bout of bradycardia into the 80s, which prompted vacuum assistance. Vacuum was uneventfully performed. Shoulders were delivered without difficulty. was placed on the maternal abdomen. After cord ceased pulsation, it was clamped and transected. Vagina was inspected, and there was 3 cm in length, second-degree laceration that was fairly shallow. This was uneventfully repaired with 2-0 Vicryl and 3-0 Vicryl. Rectal exam confirmed no incursion into the rectum. Placenta was delivered spontaneously approximately 15 minutes after delivery. It was found to be intact and grade 3. Aggressive massage and Pitocin was used to minimize blood loss. Additionally, 600 mcg of Cytotec was used. Post delivery, mother and infant bonded well. The patient was very happy. Sponge count was missing 1 sponge. Vagina was then re-explored, and there were no foreign bodies. JOB #: [id number] EXT JOB #:[id number] [email or web address]
[2017-02-17] MEDS: IBUPROFEN 600 MG TABLET PO SCH (05:50)
[2017-02-17] MEDS: ACETAMINOPHEN 325 MG TABLET PO SCH (05:51)
[2017-02-17 07:28] VITALS: BP 121/75
--- NOTE | 2017-02-17 12:54 | DISCHARGE SUMMARY ---
DATE OF ADMISSION: 02/15/2017 DATE OF DISCHARGE: 02/17/2017 DIAGNOSES 1. Term in labor. 2. Severe anemia. 3. Iron deficiency anemia complicating . 4. bradycardia. PROCEDURES: Outlet vacuum vaginal delivery of a living female infant; Repair minor laceration. CONSULTANTS: Dr. Christian Carter, Pediatrics. COMPLICATIONS: Severe anemia. HISTORY: The patient is a 21-year-old primigravida at 40 weeks' gestation based on LMP and early ultrasound. She had her care at the [facility] until 36 weeks. At that time, she transferred. She was discovered to have severe anemia. She did not respond to oral iron and was given 2 courses of IV iron. She underwent electrophoresis that was negative for hemoglobinopathy. She presented in labor without ruptured membranes with reference typewritten H and P. HOSPITAL COURSE: The patient was admitted and allowed to labor. She made progressive cervical change. We discussed epidural, but this was refused. She entered the active phase and at about 7 cm had significant pain and developed chest pain. EKG was done that was not thought to be myocardial infarction. Two units of packed red blood cells were in reserve. She then obtained an epidural which relieved the pain. With the relief of pain her chest discomfort was resolved. She continued to labor down until she was approximately +2 to +3 station. The patient was +3 station and began to push. Gradually she moved the head towards . Unfortunately, unremitting bradycardia developed in the 80s, prompting vacuum delivery. Uneventful outlet vacuum was performed, yielding a living female weighing 6 pounds 11 ounces and scoring Apgars of [address] Carter of Pediatrics was present for the delivery. Placenta was delivered intact. Cytotec was given to hasten uterine contractions and minimize blood loss. Reference typewritten delivery note. The patient rapidly advanced to a full diet and activity. LABORATORY Her admission hemoglobin was 8.6, active phase check was 8.4, and post-delivery it stabilized at 7.8. There was no leukocytosis. The patient's electrolytes were essentially within normal range with sodium 133 , potassium 3.6, chloride 102, carbon dioxide 21, gap 10, BUN 6, creatinine 0.5. Post-delivery day 1 the patient learned breast feeding techniques, as well as care. By post-delivery day #2, she had shown ability to care for herself and the girl, Tenzin. She was given complete warning sign and call back instructions. DISCHARGE MEDICATIONS 1. Motrin 600 q.6h. for 1-week course. 2. vitamins with iron. 3. Ferrous sulfate 325 mg 1 tab 3 times a day. FOLLOWUP: CBC in 1 week w initial followup in 2 weeks. The final followup will be in 6 weeks. JOB #: [id number] EXT JOB #:[id number] [email or web address]
== END 2017-02-17 11:00 | disposition home or self-care (01) | DRG 775 ==
LOC: WFO 02:58 → FBP 03:04 → WFO 06:01 → FBP 06:02 → UNDOADMIN 06:02 → FBP 07:20
PROVIDERS: ADMIT Obstetrics & Gynecology; ATTEND Obstetrics & Gynecology
PROC: 10D07Z6 Extraction of Products of Conception, Vacuum, Via Natural or Artificial Opening (ICD-10-PCS; principal; 2017-02-15)
PROC: 0KQM0ZZ Repair Perineum Muscle, Open Approach (ICD-10-PCS; 2017-02-15)
DX: O99.02 Anemia complicating childbirth (principal); O76 Abnormality in fetal heart rate and rhythm complicating labor and delivery; O70.1 Second degree perineal laceration during delivery; O69.81X0 Labor and delivery complicated by cord around neck, without compression, not applicable or unspecified; O75.89 Other specified complications of labor and delivery; R07.9 Chest pain, unspecified; Z3A.40 40 weeks gestation of pregnancy; Z37.0 Single live birth
CPT/HCPCS: 36415; 80053; 82550; 82553; 84484; 85025; 86850; 86900; 86901; 86920; 93005; 99213

== ENCOUNTER 2017-02-22 09:03 | Outpatient (CLI) | payer OTHER ==
[2017-02-22 09:54] LABS: BASOPHILS # (AUTO) 0.1 10^3/uL (0.0-0.1); BASOPHILS % (AUTO) 1.1 %; EOSINOPHILS # (AUTO) 0.1 10^3/uL (0.0-0.7); EOSINOPHILS % (AUTO) 1.7 %; HCT - HEMATOCRIT 27.9 % (37.0-47.0); HGB - HEMOGLOBIN 8.5 g/dL (12.0-16.0); LYMPHOCYTES # (AUTO) 1.1 10^3/uL (1.5-3.5); LYMPHOCYTES % (AUTO) 18.9 %; MEAN CORPUSCULAR HEMOGLOBIN 21.5 pg (27.0-31.0); MEAN CORPUSCULAR HGB CONC 30.6 g/dL (32.0-36.0); MEAN CORPUSCULAR VOLUME 70.2 fL (81.0-99.0); MEAN PLATELET VOLUME 7.9 fL (7.9-10.8); MONOCYTES # (AUTO) 0.3 10^3/uL (0.0-1.0); MONOCYTES % (AUTO) 4.7 %; NEUTROPHILS # (AUTO) 4.5 10^3/uL (1.5-6.6); NEUTROPHILS % (AUTO) 73.6 %; RED BLOOD COUNT 3.98 10^6/uL (4.20-5.40); RED CELL DISTRIBUTION WIDTH 23.5 % (12.0-15.0); UNCORRECTED WHITE BLOOD COUNT 6.1 x10^3/uL; WHITE BLOOD COUNT 6.1 x10^3/uL (4.8-10.8)
[2017-02-22 10:26] LABS: PLATELET ESTIMATE, MANUAL NORMAL (130-450,000) (NORMAL); PLATELET MORPHOLOGY NORMAL APPEARANCE (NORMAL)
== END 2017-02-22 09:04 | disposition home or self-care (01) ==
LOC: LAB 09:03
PROVIDERS: ATTEND Obstetrics & Gynecology
DX: Z13.0 Encounter for screening for diseases of the blood and blood-forming organs and certain disorders involving the immune mechanism (principal)
CPT/HCPCS: 36415; 85025

== ENCOUNTER 2017-03-31 11:03 | Outpatient (CLI) | payer OTHER ==
[2017-03-31 11:42] LABS: BASOPHILS # (AUTO) 0.1 10^3/uL (0.0-0.1); BASOPHILS % (AUTO) 1.3 %; EOSINOPHILS # (AUTO) 0.1 10^3/uL (0.0-0.7); HCT - HEMATOCRIT 32.1 % (37.0-47.0); HGB - HEMOGLOBIN 10.5 g/dL (12.0-16.0); LYMPHOCYTES # (AUTO) 1.7 10^3/uL (1.5-3.5); LYMPHOCYTES % (AUTO) 42.1 %; MEAN CORPUSCULAR HEMOGLOBIN 24.5 pg (27.0-31.0); MEAN CORPUSCULAR HGB CONC 32.7 g/dL (32.0-36.0); MEAN CORPUSCULAR VOLUME 74.9 fL (81.0-99.0); MEAN PLATELET VOLUME 7.1 fL (7.9-10.8); MONOCYTES # (AUTO) 0.3 10^3/uL (0.0-1.0); MONOCYTES % (AUTO) 7.4 %; NEUTROPHILS # (AUTO) 1.9 10^3/uL (1.5-6.6); NEUTROPHILS % (AUTO) 47.2 %; RED BLOOD COUNT 4.29 10^6/uL (4.20-5.40); RED CELL DISTRIBUTION WIDTH 22.5 % (12.0-15.0)
== END 2017-03-31 11:04 | disposition home or self-care (01) ==
LOC: LAB 11:03
PROVIDERS: ATTEND Obstetrics & Gynecology
DX: D50.9 Iron deficiency anemia, unspecified (principal)
CPT/HCPCS: 36415; 85025

== ENCOUNTER 2017-05-03 08:00 | Outpatient (CLI) | payer OTHER ==
[2017-05-03 12:42] LABS: BASOPHILS # (AUTO) 0.1 10^3/uL (0.0-0.1); BASOPHILS % (AUTO) 1.5 %; EOSINOPHILS # (AUTO) 0.1 10^3/uL (0.0-0.7); EOSINOPHILS % (AUTO) 1.7 %; HGB - HEMOGLOBIN 11.8 g/dL (12.0-16.0); LYMPHOCYTES # (AUTO) 1.9 10^3/uL (1.5-3.5); LYMPHOCYTES % (AUTO) 39.3 %; MEAN CORPUSCULAR HEMOGLOBIN 25.6 pg (27.0-31.0); MEAN CORPUSCULAR HGB CONC 33.1 g/dL (32.0-36.0); MEAN CORPUSCULAR VOLUME 77.3 fL (81.0-99.0); MEAN PLATELET VOLUME 8.2 fL (7.9-10.8); MONOCYTES # (AUTO) 0.3 10^3/uL (0.0-1.0); MONOCYTES % (AUTO) 6.4 %; NEUTROPHILS # (AUTO) 2.4 10^3/uL (1.5-6.6); NEUTROPHILS % (AUTO) 51.1 %; PLT - PLATELET COUNT 232 10^3/uL (130-450); RED BLOOD COUNT 4.63 10^6/uL (4.20-5.40); RED CELL DISTRIBUTION WIDTH 16.7 % (12.0-15.0); WHITE BLOOD COUNT 4.7 x10^3/uL (4.8-10.8)
[2017-05-03 13:13] LABS: PLATELET ESTIMATE, MANUAL NORMAL (130-450,000) (NORMAL); PLATELET MORPHOLOGY NORMAL APPEARANCE (NORMAL); RBC MORPHOLOGY (MULTIPLE) NORMAL APPEARANCE (NORMAL)
== END 2017-05-03 08:01 | disposition home or self-care (01) ==
LOC: LAB.N 08:00
PROVIDERS: ATTEND Obstetrics & Gynecology
DX: Z13.0 Encounter for screening for diseases of the blood and blood-forming organs and certain disorders involving the immune mechanism (principal)
CPT/HCPCS: 36415; 85025

== ENCOUNTER 2017-12-25 18:55 | Emergency (ER) | payer OTHER ==
[2017-12-25 19:25] LABS: BILIRUBIN,URINE NEGATIVE (NEGATIVE); GLUCOSE, URINE (UA) NEGATIVE (NEGATIVE); KETONES,URINE (UA) NEGATIVE (NEGATIVE); LEUKOCYTE ESTERASE, URINE NEGATIVE (NEGATIVE); NITRITE,URINE NEGATIVE (NEGATIVE); OCCULT BLOOD,URINE SMALL (NEGATIVE); PROTEIN,URINE NEGATIVE (NEGATIVE); UROBILINOGEN,URINE 0.2 (NORMAL) E.U./dL (NORMAL)
[2017-12-25 19:28] LABS: CLARITY,URINE CLEAR (CLEAR); HCG UR QUAL NEGATIVE
[2017-12-25 19:36] LABS: RBC,URINE 0-5 /HPF (0-5); SQUAMOUS EPITHELIAL CELL,UR MANY Squamous (<= Few)
[2017-12-25 19:37] LABS: BACTERIA,URINE Few /HPF (None Seen)
[2017-12-25] MEDS ORDERED: HYDROcod/ACETAM 5/325 MG TABLET PO STA (19:55)
[2017-12-25] MEDS ORDERED: CYCLOBENZAPRINE 10 MG TABLET PO STA (19:55)
--- NOTE | 2017-12-25 20:19 | ED Physician Documentation ---
History of Present Illness - Stated complaint Stated Complaint: LOWER BACK PX - Chief complaint Chief Complaint: Back Pain - History obtained from History obtained from: Patient - History of Present Illness Timing: Today Pain level max: 8 Pain level now: 8 Improved by: nothing Worsened by: movement - Additonal information Additional information: Patient is a 22-year-old female who presents to the emergency department low back pain that started today. Does not recall any injury. States that the pain is worsened throughout the day. Take Motrin and Tylenol without relief. States injured her back several years ago when she fell off of the tailgate of a truck. Has not had any problems since that time. States it reminds her of labor pain. States that it radiates down both legs. No dysuria. No vaginal bleeding or discharge. No urinary incontinence. No bowel or bladder incontinence. No IV drug use. No fevers. No trauma Review of Systems Constitutional: denies: Fever, Chills Throat: denies: Sore throat Cardiac: denies: Chest pain / pressure Respiratory: denies: Cough GI: denies: Nausea, Vomiting, Diarrhea : denies: Dysuria, Frequency, Hesitancy, Discharge, Now EGA Skin: denies: Rash Musculoskeletal: denies: Neck pain Neurologic: denies: Focal weakness, Numbness PD PAST MEDICAL HISTORY - Past Medical History Past Medical History: No - Past Surgical History Past Surgical History: No General: Appendectomy HEENT: Tonsil/Adenoidectomy - Present Medications Home Medications: Ambulatory Orders Medication Instructions Recorded Confirmed Cyclobenzaprine [Flexeril] 10 mg PO TID PRN #20 tablet 12/25/17 Hydrocodone/Acetaminophen 1 - 2 each PO Q6H PRN #14 tablet 12/25/17 [Hydrocodon-Acetaminophen 5-325] - Allergies Allergies/Adverse Reactions: Allergies Allergy/AdvReac Type Severity Reaction Status Date / Time No Known Drug Allergies Allergy Verified 12/25/17 19:06 - Living Situation Living Situation: reports: With family Living Arrangement: reports: At home - Social History Does the pt smoke?: No Smoking Status: Never smoker Does the pt drink ETOH?: No Does the pt have substance abuse?: No - Immunizations Immunizations are current?: Yes PD ED PE NORMAL - Vitals Vital signs reviewed: Yes - General General: Alert and oriented X 3, No acute distress - HEENT HEENT: Moist mucous membranes - Neck Neck: Supple, no meningeal sign - Cardiac Cardiac: RRR - Respiratory Respiratory: No respiratory distress, Clear bilaterally - Abdomen Abdomen: Soft, Non tender, Non distended - Back Back: No spinal TTP (No midline tenderness to palpation or percussion no step- off or deformity), Other (Paraspinal muscle spasm present bilateral low lumbar.) - Derm Derm: Warm and dry - Extremities Extremities: Other (normal bilateral lower extremity patellar and ankle jerk reflexes. Normal great toe extension bilaterally. no saddle anesthesia) - Neuro Neuro: Alert and oriented X 3, chemistry intern 2-12 intact, No motor deficit, No sensory deficit - Psych Psych: Normal mood, Normal affect Results - Vitals Vitals: Vital Signs - 24 hr 12/25/17 12/25/17 19:04 21:59 Temperature 36.5 C Heart Rate 66 66 Respiratory 18 18 Rate Blood Pressure 125/68 124/66 O2 Saturation 100 100 Oxygen O2 Source Room air - Labs Labs: Laboratory Tests 12/25/17 19:14 Urine Color YELLOW Urine Clarity CLEAR Urine pH 6.0 Ur Specific [place] 1.025 Urine Protein NEGATIVE Urine Glucose (UA) NEGATIVE Urine Ketones NEGATIVE Urine Occult Blood SMALL H Urine Nitrite NEGATIVE Urine Bilirubin NEGATIVE Urine Urobilinogen 0.2 (NORMAL) Ur Leukocyte Esterase NEGATIVE Urine RBC 0-5 Urine WBC 0-3 Ur Squamous Epith Cells MANY Squamous H Urine Bacteria Few Ur Microscopic Review INDICATED Urine Culture Comments NOT INDICATED Urine HCG, Qual NEGATIVE PD MEDICAL DECISION MAKING - ED course Complexity details: reviewed results, re-evaluated patient, considered differential (no cauda equina, no spinal epidural abscess, no fracture, no aortic dissection or evidence of aneursym rupture), d/w patient ED course: Patient is a 22-year-old female who presents to the emergency department low back pain. Feels much better after Vicodin and Flexeril. Ambulating well. Will continue supportive care and follow-up closely with her doctor. Will place on pain medication for home. No sciatica. No evidence of cauda equina. Patient counseled regarding signs and symptoms for which I believe and urgent re -evaluation would be necessary. Patient with good understanding of and agreement to plan and is comfortable going home at this time This document was made in part using voice recognition software. While efforts are made to proofread this document, sound alike and grammatical errors may occur. - Sepsis Event Vital Signs: Vital Signs - 24 hr 12/25/17 12/25/17 19:04 21:59 Temperature 36.5 C Heart Rate 66 66 Respiratory 18 18 Rate Blood Pressure 125/68 124/66 O2 Saturation 100 100 Oxygen O2 Source Room air Departure - Departure Disposition: 01 Home, Self Care Clinical Impression: Back muscle spasm Condition: Good Instructions: ED Spasm Back No Trauma Follow-Up: АННА STOREY [Primary Care Provider] - Within 1 week Prescriptions: Cyclobenzaprine [Flexeril] 10 mg PO TID PRN #20 tablet PRN Reason: Spasms Hydrocodone/Acetaminophen [Hydrocodon-Acetaminophen 5-325] 1 - 2 each PO Q6H PRN #14 tablet PRN Reason: pain Comments: Return if you worsen. This should improve over the next few days. Do not drink alcohol or drive while on narcotic pain medicine. Note that many narcotic pain relievers also contain tylenol/acetaminophen. Please ensure that your total dose of acetaminophen from all sources does not exceed 3 grams (3000mg) per day. You may constipated on this medication, take a stool softener such as "Colace" twice a day while you are on it. Also recommend a msvz-kjy-ykuzzik laxative such as senna or MiraLAX any day that you do not have a bowel movement. If you received narcotic pain medication in the emergency department, do not drive or operate machinery for the next 24 hours. Discharge Date/Time: 12/25/17 21:59
[2017-12-25] MEDS ORDERED: ONDANSETRON ODT 4 MG TABLET TL STA (20:36)
[2017-12-25 22:01] VITALS: BP 124/66
== END 2017-12-25 21:59 | disposition home or self-care (01) ==
LOC: ED 18:55
DX: M62.830 Muscle spasm of back (principal); M54.5 Low back pain; Z91.81 History of falling
CPT/HCPCS: 81001; 81025; 99283; A9270; Q0162; 81003; 87086

== ENCOUNTER 2018-04-08 16:29 | Emergency (ER) | payer OTHER ==
--- NOTE | 2018-04-08 18:00 | XRAY Report ---
Reason: Trauma Procedure Date: 04/08/2018 Accession Number: [id number] / [id number] Procedure: XR - Ankle 3 View LT CPT Code: FULL RESULT: EXAM: LEFT ANKLE RADIOGRAPHY EXAM DATE: 04/08/2018 05:29 PM. CLINICAL HISTORY: Pain after injury. COMPARISON: None. TECHNIQUE: 3 views. FINDINGS: Bones: Normal. No fractures or bone lesions. Joints: Normal. No effusion. No subluxations. The ankle mortise is normally aligned. Soft Tissues: Normal. No soft tissue swelling. IMPRESSION: 1. No fracture or malalignment. 2. Ankle mortise intact. 3. Normal soft tissues. 4. If patient remains symptomatic, recommend radiographs in 10-14 days. RADIA
[2018-04-08] MEDS ORDERED: MELOXICAM 7.5 MG TABLET PO STA (18:21)
--- NOTE | 2018-04-08 18:23 | ED Physician Documentation ---
PD HPI LOWER EXT INJURY - Stated complaint Stated Complaint: LT ANKLE PX - Chief complaint Chief Complaint: Trauma Ext - History obtained from History obtained from: Patient - History of Present Illness PD HPI LOW EXT INJURY LOCATION: Left, Ankle Type of injury: Twist Where injury occurred: Street Timing - onset: How many days ago (4) Timing - duration: Days (4) Timing - details: Abrupt onset Pain level max: 6 Pain level now: 5 Improved by: Rest, Ice, Immobilization Worsened by: Moving, Palpating Associated symptoms: Swelling. No: Weakness, Numbness, Tingling Contributing factors: No: Anticoagulated, Prior ortho surgery, Prosthetic joint Similar symptoms before: Has not had sx before Review of Systems : denies: Now EGA Neurologic: denies: Focal weakness, Numbness PD PAST MEDICAL HISTORY - Past Medical History Past Medical History: No - Past Surgical History Past Surgical History: Yes General: Appendectomy HEENT: Tonsil/Adenoidectomy - Present Medications Home Medications: Ambulatory Orders Medication Instructions Recorded Confirmed Etonogestrel [Nexplanon] 04/08/18 Meloxicam [Mobic] 15 mg PO DAILY PRN #20 tablet 04/08/18 - Allergies Allergies/Adverse Reactions: Allergies Allergy/AdvReac Type Severity Reaction Status Date / Time No Known Drug Allergies Allergy Verified 04/08/18 16:47 - Social History Does the pt smoke?: No Smoking Status: Never smoker Does the pt drink ETOH?: No Does the pt have substance abuse?: No - Immunizations Immunizations are current?: Yes PD ED PE NORMAL - Vitals Vital signs reviewed: Yes - General General: Alert and oriented X 3, No acute distress - HEENT HEENT: Moist mucous membranes - Neck Neck: Supple, no meningeal sign - Derm Derm: Warm and dry - Extremities Extremities: Other (L ankle - Tender palpation over the lateral malleolus. Mild swelling. No tenderness over the base of fifth metatarsal. Neurovascularly intact.) - Neuro Neuro: Alert and oriented X 3 Results - Vitals Vitals: Vital Signs - 24 hr 04/08/18 04/08/18 16:46 18:34 Temperature 37.2 C Heart Rate 65 66 Respiratory 16 16 Rate Blood Pressure 102/51 L 106/56 L O2 Saturation 99 100 Oxygen O2 Source Room air - Rads (name of study) L ankle xray Radiology: Prelim report reviewed, EMP read contemporaneously, See rad report (No acute bony abnormality) PD MEDICAL DECISION MAKING - ED course Complexity details: reviewed results, considered differential, d/w patient ED course: 23-year-old female with a left ankle sprain. Placed on gel splint and given crutches. No acute findings on x-ray. Patient counseled regarding signs and symptoms for which I believe and urgent re-evaluation would be necessary. Patient with good understanding of and agreement to plan and is comfortable going home at this time This document was made in part using voice recognition software. While efforts are made to proofread this document, sound alike and grammatical errors may occur. Departure - Departure Disposition: 01 Home, Self Care Clinical Impression: Left ankle sprain Qualifiers: Encounter type: initial encounter Involved ligament of ankle: unspecified ligament Qualified Code(s): S93.402A - Sprain of unspecified ligament of left ankle, initial encounter Condition: Good Instructions: ED Sprain Ankle Follow-Up: АННА STOREY [Primary Care Provider] - Within 1 week Prescriptions: Meloxicam [Mobic] 15 mg PO DAILY PRN #20 tablet PRN Reason: pain Comments: Return if you worsen. You may bear weight as tolerated. If you are still having pain in 10-14 days, you should have repeat x-rays performed. Discharge Date/Time: 04/08/18 18:34
[2018-04-08 18:35] VITALS: BP 106/56
== END 2018-04-08 18:34 | disposition home or self-care (01) ==
LOC: ED 16:29
DX: S93.402A Sprain of unspecified ligament of left ankle, initial encounter (principal); X50.1XXA Overexertion from prolonged static or awkward postures, initial encounter; W19.XXXA Unspecified fall, initial encounter; Y92.410 Unspecified street and highway as the place of occurrence of the external cause
CPT/HCPCS: 73610; 99283; A9270

== ENCOUNTER 2018-09-24 19:17 | Emergency (ER) | payer OTHER ==
[2018-09-24] MEDS ORDERED: BUFFERED LIDOCAINE 10 ML SYRINGE SUBQ STA (19:47)
[2018-09-24] MEDS ORDERED: cephALEXin 250 MG CAPSULE PO STA (19:47)
[2018-09-24] MEDS ORDERED: CEPHALEXIN 250 MG Prepack 8 PO ONE (19:47)
--- NOTE | 2018-09-24 19:48 | ED Physician Documentation ---
PD HPI SKIN - Stated complaint Stated Complaint: BELLY RING OOZE - Chief complaint Chief Complaint: Wound - History obtained from History obtained from: Patient - History of Present Illness Timing - onset: Other (She had a piercing to the umbilicus that became infected. She removed the piercing but there is still a hard ball there and it is painful.) Review of Systems Constitutional: reports: Reviewed and negative Cardiac: reports: Reviewed and negative Respiratory: reports: Reviewed and negative PD PAST MEDICAL HISTORY - Past Surgical History Past Surgical History: Yes General: Appendectomy HEENT: Tonsil/Adenoidectomy - Present Medications Home Medications: Ambulatory Orders Medication Instructions Recorded Confirmed Etonogestrel [Nexplanon] 1 applic [id number] DAILY 04/08/18 Cephalexin [Keflex] 500 mg PO Q6H #28 capsule 09/24/18 Prazosin [Minipress] 1 mg PO QPM 09/24/18 09/24/18 Sertraline [Zoloft] 50 mg PO DAILY 09/24/18 09/24/18 traZODone [Desyrel] 50 mg PO HS 09/24/18 09/24/18 - Allergies Allergies/Adverse Reactions: Allergies Allergy/AdvReac Type Severity Reaction Status Date / Time No Known Drug Allergies Allergy Verified 09/24/18 19:28 - Social History Does the pt smoke?: No Smoking Status: Never smoker Does the pt drink ETOH?: No Does the pt have substance abuse?: No - Immunizations Immunizations are current?: Yes PD ED PE NORMAL - Vitals Vital signs reviewed: Yes - General General: Alert and oriented X 3, No acute distress - Derm Derm: Other (There is a small superficial supraumbilical abscess that is pointed) - Neuro Neuro: Alert and oriented X 3, Normal speech Results - Vitals Vitals: Vital Signs - 24 hr 09/24/18 19:26 Temperature 36.4 C L Heart Rate 74 Respiratory 14 Rate Blood Pressure 124/70 O2 Saturation 100 Oxygen O2 Source Room air Procedures - Abscess I&D (location) umbilicus Preparation: Alcohol, Lidocaine 1%, Other (It seems like it was a little abscess on examination, however on incision no purulent material came out, it was more like a keloid or scar tissue. 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
[2018-09-24 20:27] VITALS: BP 123/75
== END 2018-09-24 20:29 | disposition home or self-care (01) ==
LOC: ED 19:17
DX: L90.5 Scar conditions and fibrosis of skin (principal)
CPT/HCPCS: 10060; 99283; A9270